=== PATIENT | male | born 1985 | race African-American/Black ===

== ENCOUNTER 2018-06-24 10:26 | Inpatient (IN) | payer SELFPAY ==
[2018-06-24 11:11] VITALS: BMI 24.6
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
[2018-06-24] MEDS ORDERED: IBUPROFEN 400 MG TABLET (FP) PO PRN (11:59)
[2018-06-24] MEDS ORDERED: ACETAMINOPHEN 325 MG TABLET (FP) PO PRN (11:59)
[2018-06-24] MEDS ORDERED: guaiFENesin/D-METHORPHAN HB 10 ML UNIT-DOSE CUPS PO PRN (11:59)
[2018-06-24] MEDS ORDERED: MAG HYDROX/AL HYDROX/SIMETH 30 ML UNIT-DOSE CUP PO PRN (11:59)
[2018-06-24] MEDS ORDERED: MAGNESIUM CITRATE 300 ML BOTTLE PO PRN (11:59)
[2018-06-24] MEDS ORDERED: MAGNESIUM HYDROX 2400MG/30ML ORAL SUSPENSION 30 ML CUP PO PRN (11:59)
[2018-06-24] MEDS ORDERED: NICOTINE POLACRILEX 2 MG GUM BUC PRN (11:59)
[2018-06-24] MEDS ORDERED: MENTHOL/PHENOL 1 EACH UD MM PRN (11:59)
[2018-06-24] MEDS ORDERED: chlordiazePOXIDE HCL 25 MG CAPSULE PO PRN (11:59)
[2018-06-24] MEDS ORDERED: P-EPHED 60MG/TRIPROLIDI 2.5MG TABLET PO PRN (11:59)
[2018-06-24] MEDS ORDERED: METOPROLOL TARTRATE 25 MG TABLET (FP) PO ONE (13:00)
--- NOTE | 2018-06-24 14:32 | EKG ---
Test Reason : Blood Pressure : / mmHG Vent. Rate : 107 BPM Atrial Rate : 107 BPM P-R Int : 118 ms QRS Dur : 086 ms QT Int : 334 ms P-R-T Axes : 068 051 057 degrees QTc Int : 445 ms SINUS TACHYCARDIA POSSIBLE LEFT ATRIAL ENLARGEMENT SEPTAL INFARCT , AGE UNDETERMINED ABNORMAL ECG NO PREVIOUS ECGS AVAILABLE Confirmed by Chinedu Saleh MD ([id number]) on 06/24/2018 2:32:12 PM Referred By: Confirmed By:Chinedu Saleh MD
[2018-06-24] MEDS: chlordiazePOXIDE HCL 25 MG CAPSULE PO SCH ×2 (17:21→22:17)
[2018-06-24] MEDS ORDERED: MELATONIN 5 MG TABLETS PO PRN (22:00)
[2018-06-24] MEDS: THIAMINE HCL 100 MG TABLET (FP) PO SCH (22:17)
[2018-06-25] MEDS: chlordiazePOXIDE HCL 25 MG CAPSULE PO SCH ×4 (06:01→22:09)
[2018-06-25 09:57] LABS: HEMOGLOBIN 14.7 GM/dL (11.7-16.9); MEAN CELL VOLUME 99.1 fl (80-96); WHITE BLOOD COUNT 8.2 K/mm3 (4.0-10.0)
[2018-06-25 10:00] LABS: HEMATOCRIT 44.5 % (35.4-49); MCH 32.7 pg (25.7-33.7); PLATELET COUNT 234 K/MM3 (134-434); RBC 4.49 M/mm3 (4.00-5.60); RDW 12.9 % (11.9-15.9)
[2018-06-25 10:41] LABS: ALBUMIN 3.6 g/dl (3.4-5.0); ALK PHOS 100 U/L (45-117); ANION GAP 10 MMOL/L (8-16); BILIRUBIN,TOTAL 1.4 mg/dL (0.2-1); BLOOD UREA NITROGEN 3 mg/dL (7-18); CALCIUM 9.3 mg/dL (8.5-10.1); CHLORIDE 108 mmol/L (98-107); CO2 23 mmol/L (21-32); CREATININE 0.7 mg/dL (0.55-1.3); GLUCOSE,RANDOM 98 mg/dL (74-106); POTASSIUM 4.2 mmol/L (3.5-5.1); SGOT/AST 38 U/L (15-37); SGPT/ALT 30 U/L (13-61); SODIUM 141 mmol/L (136-145); TOT PROT 7.6 g/dl (6.4-8.2)
[2018-06-25] MEDS: PRENATAL VITAMINS W/ FOLIC ACID TABLET (FP) PO SCH (10:46)
--- NOTE | 2018-06-25 11:10 | PN ---
S CIWA - CIWA Score Nausea/Vomitin Muscle Tremors: 2 Anxiety: 2 Agitation: 4-Moderately Restless Paroxysmal Sweats: No Perspiration Orientation: 0-Oriented Tacttile Disturbances: 0-None Auditory Disturbances: 0-None Visual Disturbances: 0-None Headache: 2-Mild CIWA-Ar Total Score: 13 BHS Progress Note (SOAP) Subjective: PATIENT C/O SHAKES, ANXIETY, RESTLESSNESS, DIARRHEA, INSOMNIA AND MILD HEADACHE. Objective: 06/25/18 11:07 Vital Signs Temperature 96 F L 06/25/18 09:19 Pulse Rate 93 H 06/25/18 10:30 Respiratory Rate 16 06/25/18 10:30 Blood Pressure 141/92 06/25/18 09:19 O2 Sat by Pulse Oximetry (%) Laboratory Tests 06/24/18 06/25/18 06/25/18 12:20 05:45 05:45 WBC 8.2 RBC 4.49 Hgb 14.7 Hct 44.5 MCV 99.1 H MCH 32.7 MCHC 33.0 RDW 12.9 Plt Count 234 MPV 8.0 Sodium 141 Potassium 4.2 Chloride 108 H Carbon Dioxide 23 Anion Gap 10 BUN 3 L Creatinine 0.7 Creat Clearance w eGFR > 60 Random Glucose 98 Calcium 9.3 Total Bilirubin 1.4 H AST 38 H ALT 30 Alkaline Phosphatase 100 Total Protein 7.6 Albumin 3.6 HIV 1&2 Antibody Screen Negative HIV P24 Antigen Negative PE: ALERT AND ORIENTED X 3 SKIN WARM AND DRY EXT FULL ROM, MILD TREMORS NEURO +PERRLA, EOMS INTACT BL +ANXIETY, PACING IN HALLWAY Assessment: 06/25/18 11:09 WITHDRAWAL SX Plan: CONTINUE DETOX ENCOURAGE ORAL FLUIDS CONTINUE TO MONITOR CLINICALLY
[2018-06-25] MEDS: traZODone HCL 50 MG TABLET (FP) PO SCH (22:09)
[2018-06-25] MEDS: THIAMINE HCL 100 MG TABLET (FP) PO SCH (22:09)
[2018-06-26] MEDS: chlordiazePOXIDE HCL 25 MG CAPSULE PO SCH ×2 (05:59→10:34)
[2018-06-26] MEDS: PRENATAL VITAMINS W/ FOLIC ACID TABLET (FP) PO SCH (10:32)
--- NOTE | 2018-06-26 12:50 | PN ---
S CIWA - CIWA Score Nausea/Vomitin-No Nausea/No Vomiting Muscle Tremors: 3 Anxiety: 1-Mildly Anxious Agitation: 2 Paroxysmal Sweats: 1-Minimal Palms Moist Orientation: 1-Uncertain about Date Tacttile Disturbances: 0-None Auditory Disturbances: 0-None Visual Disturbances: 0-None Headache: 2-Mild CIWA-Ar Total Score: 10 S Progress Note (SOAP) Subjective: patient had abnormal ekg upon admission repeat ekg shows arrhythmia otherwise normal begin aspirin patient is asymptomatic denies chest pain denies shortness of breath denies dizziness health teaching on negative consequences of alcohol misuse tremor sweating anxiety restlessness Objective: 06/26/18 13:04 Vital Signs Temperature 97.0 F L 06/26/18 09:33 Pulse Rate 85 06/26/18 09:33 Respiratory Rate 18 06/26/18 09:33 Blood Pressure 129/87 06/26/18 09:33 O2 Sat by Pulse Oximetry (%) Laboratory Last Values WBC 8.2 K/mm3 (4.0-10.0) 06/25/18 05:45 RBC 4.49 M/mm3 (4.00-5.60) 06/25/18 05:45 Hgb 14.7 GM/dL (11.7-16.9) 06/25/18 05:45 Hct 44.5 % (35.4-49) 06/25/18 05:45 MCV 99.1 fl (80-96) H 06/25/18 05:45 MCH 32.7 pg (25.7-33.7) 06/25/18 05:45 MCHC 33.0 g/dl (32.0-35.9) 06/25/18 05:45 RDW 12.9 % (11.9-15.9) 06/25/18 05:45 Plt Count 234 K/MM3 (134-434) 06/25/18 05:45 MPV 8.0 fl (7.5-11.1) 06/25/18 05:45 Sodium 141 mmol/L (136-145) 06/25/18 05:45 Potassium 4.2 mmol/L (3.5-5.1) 06/25/18 05:45 Chloride 108 mmol/L (98-107) H 06/25/18 05:45 Carbon Dioxide 23 mmol/L (21-32) 06/25/18 05:45 Anion Gap 10 MMOL/L (8-16) 06/25/18 05:45 BUN 3 mg/dL (7-18) L 06/25/18 05:45 Creatinine 0.7 mg/dL (0.55-1.3) 06/25/18 05:45 Creat Clearance w eGFR > 60 (>60) 06/25/18 05:45 Random Glucose 98 mg/dL (74-106) 06/25/18 05:45 Calcium 9.3 mg/dL (8.5-10.1) 06/25/18 05:45 Total Bilirubin 1.4 mg/dL (0.2-1) H 06/25/18 05:45 AST 38 U/L (15-37) H 06/25/18 05:45 ALT 30 U/L (13-61) 06/25/18 05:45 Alkaline Phosphatase 100 U/L (45-117) 06/25/18 05:45 Total Protein 7.6 g/dl (6.4-8.2) 06/25/18 05:45 Albumin 3.6 g/dl (3.4-5.0) 06/25/18 05:45 RPR Titer Nonreactive (NONREACTIVE) 06/25/18 05:45 HIV 1&2 Antibody Screen Negative 06/24/18 12:20 HIV P24 Antigen Negative 06/24/18 12:20 lab noted Assessment: 06/26/18 13:05 withdrawal sx Plan: continue detox
[2018-06-26] MEDS: ASPIRIN 81 MG CHEWABLE TABLETS PO SCH (15:33)
[2018-06-26] MEDS: chlordiazePOXIDE 5 MG CAPSULE PO SCH ×2 (16:38→22:03)
[2018-06-26] MEDS: THIAMINE HCL 100 MG TABLET (FP) PO SCH (22:03)
[2018-06-26] MEDS: traZODone HCL 50 MG TABLET (FP) PO SCH (22:03)
[2018-06-27] MEDS: chlordiazePOXIDE 5 MG CAPSULE PO SCH ×2 (05:53→10:35)
[2018-06-27] MEDS: ASPIRIN 81 MG CHEWABLE TABLETS PO SCH (10:35)
[2018-06-27] MEDS: PRENATAL VITAMINS W/ FOLIC ACID TABLET (FP) PO SCH (10:35)
--- NOTE | 2018-06-27 11:40 | EKG ---
Test Reason : Blood Pressure : / mmHG Vent. Rate : 065 BPM Atrial Rate : 065 BPM P-R Int : 128 ms QRS Dur : 090 ms QT Int : 376 ms P-R-T Axes : 073 051 057 degrees QTc Int : 391 ms NORMAL SINUS RHYTHM WITH SINUS ARRHYTHMIA NORMAL ECG WHEN COMPARED WITH ECG OF 24-JUN-2018 13:58, VENT. RATE HAS DECREASED BY 42 BPM CRITERIA FOR SEPTAL INFARCT ARE NO LONGER PRESENT NON-SPECIFIC CHANGE IN ST SEGMENT IN ANTERIOR LEADS QT HAS SHORTENED Confirmed by REMINGTON ALVAREZ, JADA ([id number]) on 06/27/2018 11:39:55 AM Referred By: Confirmed By:JADA MACEDO MD
--- NOTE | 2018-06-27 16:23 | PN ---
S Progress Note (SOAP) Subjective: Patient Denies any Current Withdrawal Symptoms at This Time. Objective: PATIENT A & O X 2 (UNCERTAIN ABOUT CURRENT DAY / DATE). PATIENT OBSERVED AMBULATING ON UNIT. IN NO ACUTE DISTRESS. 06/27/18 16:21 Vital Signs Temperature 97.8 F 06/27/18 13:13 Pulse Rate 101 H 06/27/18 13:13 Respiratory Rate 20 06/27/18 13:13 Blood Pressure 144/90 06/27/18 13:13 O2 Sat by Pulse Oximetry (%) Laboratory Tests 06/24/18 06/25/18 06/25/18 12:20 05:45 05:45 WBC 8.2 RBC 4.49 Hgb 14.7 Hct 44.5 MCV 99.1 H MCH 32.7 MCHC 33.0 RDW 12.9 Plt Count 234 MPV 8.0 Sodium 141 Potassium 4.2 Chloride 108 H Carbon Dioxide 23 Anion Gap 10 BUN 3 L Creatinine 0.7 Creat Clearance w eGFR > 60 Random Glucose 98 Calcium 9.3 Total Bilirubin 1.4 H AST 38 H ALT 30 Alkaline Phosphatase 100 Total Protein 7.6 Albumin 3.6 RPR Titer HIV 1&2 Antibody Screen Negative HIV P24 Antigen Negative 06/25/18 05:45 WBC RBC Hgb Hct MCV MCH MCHC RDW Plt Count MPV Sodium Potassium Chloride Carbon Dioxide Anion Gap BUN Creatinine Creat Clearance w eGFR Random Glucose Calcium Total Bilirubin AST ALT Alkaline Phosphatase Total Protein Albumin RPR Titer Nonreactive HIV 1&2 Antibody Screen HIV P24 Antigen LABS NOTED. Assessment: 06/27/18 16:22 WITHDRAWAL SYMPTOMS. Plan: CONTINUE DETOX. PATIENT SCHEDULED FOR D/C TOMORROW.
[2018-06-27] MEDS: chlordiazePOXIDE HCL 10 MG CAPSULE PO SCH ×2 (17:17→22:18)
[2018-06-27] MEDS: THIAMINE HCL 100 MG TABLET (FP) PO SCH (22:18)
[2018-06-27] MEDS: traZODone HCL 50 MG TABLET (FP) PO SCH (22:18)
[2018-06-28] MEDS: chlordiazePOXIDE HCL 10 MG CAPSULE PO SCH (05:38)
[2018-06-28 06:30] VITALS: BP 122/79; PULSE 82; TEMP 97.2
--- NOTE | 2018-06-28 21:30 | DS ---
[facility] Detox Discharge Summary Admission Date: 06/24/18 Discharge Date: 06/28/18 - History Present History: Alcohol Dependence Additional Comments: PATIENT TO DEAL WITH PERSONAL ISSUE AT THIS TIME. AFTER RESOLVED, PATIENT WILL APPLY FOR REHAB ADMISSION. PATIENT WAS DISCHARGED FROM DETOX UNIT IN STABLE MEDICAL CONDITION. Pertinent Past History: Nicotine Dependence, Insomnia. - Physical Exam Results Vital Signs: Vital Signs Temperature 97.2 F L 06/28/18 06:29 Pulse Rate 82 06/28/18 06:29 Respiratory Rate 18 06/28/18 06:29 Blood Pressure 122/79 06/28/18 06:29 O2 Sat by Pulse Oximetry (%) Pertinent Admission Physical Exam Findings: WITHDRAWAL SYMPTOMS. Laboratory Tests 06/24/18 06/25/18 06/25/18 12:20 05:45 05:45 WBC 8.2 RBC 4.49 Hgb 14.7 Hct 44.5 MCV 99.1 H MCH 32.7 MCHC 33.0 RDW 12.9 Plt Count 234 MPV 8.0 Sodium 141 Potassium 4.2 Chloride 108 H Carbon Dioxide 23 Anion Gap 10 BUN 3 L Creatinine 0.7 Creat Clearance w eGFR > 60 Random Glucose 98 Calcium 9.3 Total Bilirubin 1.4 H AST 38 H ALT 30 Alkaline Phosphatase 100 Total Protein 7.6 Albumin 3.6 RPR Titer HIV 1&2 Antibody Screen Negative HIV P24 Antigen Negative 06/25/18 05:45 WBC RBC Hgb Hct MCV MCH MCHC RDW Plt Count MPV Sodium Potassium Chloride Carbon Dioxide Anion Gap BUN Creatinine Creat Clearance w eGFR Random Glucose Calcium Total Bilirubin AST ALT Alkaline Phosphatase Total Protein Albumin RPR Titer Nonreactive HIV 1&2 Antibody Screen HIV P24 Antigen LABS NOTED. - Treatment Hospital Course: Detox Protocol Followed, Detoxed Safely, Responded well, Discharged Condition Good Patient has Accepted a Rehab Referral to: PATIENT WILL APPLY FOR REHAB ADMISION AT A LATER DATE. - Medication Discharge Medications: Ambulatory Orders NK [No Known Home Medication] 06/24/18 - Diagnosis (1) Alcohol dependence with uncomplicated withdrawal Status: Acute (2) Alcohol intoxication Status: Acute Qualifiers: Complication of substance-induced condition: uncomplicated Qualified Code(s ): F10.920 - Alcohol use, unspecified with intoxication, uncomplicated (3) Insomnia disorder Status: Acute Qualifiers: Insomnia type: drug-induced Qualified Code(s): F19.982 - Other psychoactive substance use, unspecified with psychoactive substance-induced sleep disorder (4) Nicotine dependence Status: Chronic Qualifiers: Nicotine product type: cigarettes Substance use status: uncomplicated Qualified Code(s): F17.210 - Nicotine dependence, cigarettes, uncomplicated - AMA Did Patient Leave Against Medical Advice: No
== END 2018-06-28 09:10 | disposition home or self-care (01) | DRG 775 ==
LOC: YASAS 10:26 → Y3N 12:46
PROC: HZ2ZZZZ Detoxification Services for Substance Abuse Treatment (ICD-10-PCS; principal; 2018-06-24)
DX: F10.230 Alcohol dependence with withdrawal, uncomplicated (principal); F17.210 Nicotine dependence, cigarettes, uncomplicated; F19.282 Other psychoactive substance dependence with psychoactive substance-induced sleep disorder; R20.2 Paresthesia of skin; S60.512A Abrasion of left hand, initial encounter; S60.511A Abrasion of right hand, initial encounter; W19.XXXA Unspecified fall, initial encounter; Z91.81 History of falling; Y93.89 Activity, other specified; Y92.89 Other specified places as the place of occurrence of the external cause; Y99.8 Other external cause status
CPT/HCPCS: 36415; 80053; 85027; 86593; 87389; 93005; 93010

== ENCOUNTER 2018-08-31 08:03 | Inpatient (IN) | payer OTHER ==
[2018-08-31 08:41] VITALS: BMI 22.3
--- NOTE | 2018-08-31 08:51 | HP ---
CIWA Score Nausea/Vomitin Muscle Tremors: 2 Anxiety: 2 Agitation: 2 Paroxysmal Sweats: 1-Minimal Palms Moist Orientation: 0-Oriented Tacttile Disturbances: 1-Very Mild Itch/Numbness Auditory Disturbances: 1-Very Mild Visual Disturbances: 0-None Headache: 2-Mild CIWA-Ar Total Score: 13 - Admission Criteria OASAS Guidelines: Admission for Medically Managed Detox: Requires at least one of the followin. CIWA greater than 12 2. Seizures within the past 24 hours 3. Delirium tremens within the past 24 hours 4. Hallucinations within the past 24 hours 5. Acute intervention needed for co occurring medical disorder 6. Acute intervention needed for co occurring psychiatric disorder 7. Severe withdrawal that cannot be handled at a lower level of care (continued vomiting, continued diarrhea, abnormal vital signs) requiring intravenous medication and/or fluids 8. Admission ROS S - HPI Chief Complaint: i need help to stop drinking alcohol Allergies/Adverse Reactions: Allergies Allergy/AdvReac Type Severity Reaction Status Date / Time No Known Allergies Allergy Verified 08/31/18 08:54 History of Present Illness: this 33 years old male with alcohol dependence seeking help to stop drinking alcohol, had previous admission in detox,last admission [facility] 06/24/18 to 06/28/18 syncope alcohol related nicotine dependence 1 pack/day no significant period of sobriety need help to stop drinking alcohol - Ebola screening Have you traveled outside of the country in the last 21 days: No (N) Have you had contact with anyone from an Ebola affected area: No Have you been sick,other than usual withdrawal symptoms: No Do you have a fever: No - Review of Systems Constitutional: Loss of Appetite, Malaise, Night Sweats, Changes in sleep, Weakness EENT: reports: Nose Congestion Respiratory: reports: No Symptoms reported Cardiac: reports: No Symptoms Reported GI: reports: Nausea, Poor Appetite, Abdominal cramping : reports: No Symptoms Reported Musculoskeletal: reports: Back Pain, Muscle Pain Integumentary: reports: Dryness Neuro: reports: Tremors Endocrine: reports: No Symptoms Reported Hematology: reports: No Symptoms Reported Psychiatric: reports: No Sypmtoms Reported, Judgement Intact, Mood/Affect Appropiate, Orientated x3 Other Systems: Reviewed and Negative Patient History - Patient Medical History Hx Anemia: No Hx Asthma: No Hx Chronic Obstructive Pulmonary Disease (COPD): No Hx Cancer: No Hx Cardiac Disorders: No Hx Congestive Heart Failure: No Hx Hypertension: No Hx Hypercholesterolemia: No Hx Pacemaker: No HX Cerebrovascular Accident: No Hx Seizures: No Hx Dementia: No Hx Diabetes: No Hx Gastrointestinal Disorders: No Hx Liver Disease: No Hx Genitourinary Disorders: No Hx Sexually Transmitted Disorders: No Hx Renal Disease (ESRD): No Hx Thyroid Disease: No Hx Human Immunodeficiency Virus (HIV): No (last 07/05 negative) Hx Hepatitis C: No Hx Depression: No Hx Suicide Attempt: No Hx Bipolar Disorder: No Hx Schizophrenia: No Other Medical History: no suicidal,no homicidal - Patient Surgical History Past Surgical History: No Hx Neurologic Surgery: No Hx Cataract Extraction: No Hx Cardiac Surgery: No Hx Lung Surgery: No Hx Breast Surgery: No Hx Breast Biopsy: No Hx Abdominal Surgery: No Hx Appendectomy: No Hx Cholecystectomy: No Hx Genitourinary Surgery: No Hx Section: No Hx Orthopedic Surgery: No Anesthesia Reaction: No - PPD History Previous Implant?: Yes Documented Results: Negative w/proof Implanted On Prior [facility] Admission?: Yes Date: 06/26/18 Results: 0 mm PPD to be Administered?: No - Smoking Cessation Smoking history: Current every day smoker Have you smoked in the past 12 months: Yes Aproximately how many cigarettes per day: 20 Hx Chewing Tobacco Use: No Initiated information on smoking cessation: Yes 'Breaking Loose' booklet given: 08/31/18 - Substance & Tx. History Hx Alcohol Use: Yes Hx Substance Use: No Substance Use Type: Alcohol Hx Substance Use Treatment: Yes ([facility] 06/26/18 to 06/30/18) - Substances Abused Alcohol Route: Oral Frequency: Daily Amount used: 1 pint of vodka/6 packs of 12 ozs of beer Age of first use: 17 Date of Last Use: 08/31/18 Family Disease History - Family Disease History Family Disease History: Other: Mother (knee surgery ) Admission Physical Exam BHS - Vital Signs Vital Signs: Vital Signs - 24 hr 08/31/18 08:39 Temperature 98.3 F Pulse Rate 86 Respiratory 18 Rate Blood Pressure 131/83 - Physical General Appearance: Yes: Mild Distress, Intoxicated, Tremorous, Irritable, Anxious HEENTM: Yes: ANIRUDH, Pharynx Normal Respiratory: Yes: Lungs Clear, Normal Breath Sounds, No Respiratory Distress Neck: Yes: Within Normal Limits, Supple, Trachea in good position Breast: Yes: Within Normal Limits Cardiology: Yes: Within Normal Limits, Regular Rhythm, Regular Rate, S1, S2 Abdominal: Yes: Within Normal Limits, Normal Bowel Sounds, Non Tender, Flat, Soft Genitourinary: Yes: Within Normal Limits Back: Yes: Muscle Spasm Musculoskeletal: Yes: Back pain, Muscle Pain Extremities: Yes: Tremors 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, Fully Oriented, Alert, Motor Strength 5/5 Integumentary: Yes: Dry Lymphatic: Yes: Within Normal Limits - Diagnostic (1) Alcohol dependence with uncomplicated withdrawal Current Visit: No Status: Acute (2) Alcohol intoxication Current Visit: No Status: Acute Qualifiers: Complication of substance-induced condition: uncomplicated Qualified Code(s ): F10.920 - Alcohol use, unspecified with intoxication, uncomplicated (3) Nicotine dependence Current Visit: No Status: Chronic Qualifiers: Nicotine product type: cigarettes Substance use status: uncomplicated Qualified Code(s): F17.210 - Nicotine dependence, cigarettes, uncomplicated (4) Syncope Current Visit: Yes Status: Acute Cleared for Admission [facility] - Detox or Rehab [facility] Level of Care: Medically Managed Detox Regimen/Protocol: Librium [facility] Breath Alcohol Content Breath Alcohol Content: 0.330 Urine Drug Screen - Results Drug Screen Negative: Yes Inpatient Rehab Admission - Rehab Decision to Admit Inpatient rehab admission?: No
[2018-08-31] MEDS ORDERED: hydrOXYzine PAMOATE 25 MG CAPSULE (FP) PO PRN (08:57)
[2018-08-31] MEDS ORDERED: MAGNESIUM CITRATE 300 ML BOTTLE PO PRN (08:57)
[2018-08-31] MEDS ORDERED: MENTHOL/PHENOL 1 EACH UD MM PRN (08:57)
[2018-08-31] MEDS ORDERED: MAGNESIUM HYDROX 2400MG/30ML ORAL SUSPENSION 30 ML CUP PO PRN (08:57)
[2018-08-31] MEDS ORDERED: IBUPROFEN 400 MG TABLET (FP) PO PRN (08:57)
[2018-08-31] MEDS ORDERED: ACETAMINOPHEN 325 MG TABLET (FP) PO PRN ×2 (08:57)
[2018-08-31] MEDS ORDERED: MAG HYDROX/AL HYDROX/SIMETH 30 ML UNIT-DOSE CUP PO PRN (08:57)
[2018-08-31] MEDS ORDERED: MELATONIN 5 MG TABLETS PO PRN (08:57)
[2018-08-31] MEDS ORDERED: BISMUTH SUBSALICYLATE 524 MG/30 ML UD PO PRN (08:57)
[2018-08-31] MEDS ORDERED: chlordiazePOXIDE HCL 25 MG CAPSULE PO PRN (08:57)
[2018-08-31] MEDS ORDERED: METHOCARBAMOL 500 MG TABLET PO PRN (08:57)
[2018-08-31] MEDS ORDERED: NICOTINE 21 MG/24 HOURS TOPICAL PATCH TD SCH (10:00)
[2018-08-31] MEDS ORDERED: PRENATAL VITAMINS W/ FOLIC ACID TABLET (FP) PO SCH (10:00)
[2018-08-31] MEDS ORDERED: chlordiazePOXIDE HCL 25 MG CAPSULE PO SCH (17:00)
[2018-08-31 17:11] VITALS: BP 143/93; TEMP 99
[2018-08-31 18:31] VITALS: PULSE 98
--- NOTE | 2018-08-31 18:31 | PN ---
[facility] Progress Note Note: called by nurse state patient would like to leave alert,oriented x 3 jamal is 0.182 all attempts to convince patient to stay with no avail seen by counselor patient stated that his mother is sick,he is the only child,he need to be there for his mother Vital Signs Temperature 99 F 08/31/18 17:10 Pulse Rate 108 H 08/31/18 17:30 Respiratory Rate 18 08/31/18 17:30 Blood Pressure 143/93 08/31/18 17:10 O2 Sat by Pulse Oximetry (%) high risk of relapsing explain to patient advise to go to nearest emergency room if any problem patient signed release against medical advice left the unit in stable condition,on steady gait
--- NOTE | 2018-08-31 18:35 | DS ---
[facility] Detox Discharge Summary Admission Date: 08/31/18 Discharge Date: 08/31/18 - History Present History: Alcohol Dependence Additional Comments: patient signed release against medical advice Pertinent Past History: syncope insomnia - Physical Exam Results Vital Signs: Vital Signs Temperature 99 F 08/31/18 17:10 Pulse Rate 98 H 08/31/18 18:30 Respiratory Rate 18 08/31/18 18:30 Blood Pressure 143/93 08/31/18 17:10 O2 Sat by Pulse Oximetry (%) Pertinent Admission Physical Exam Findings: withdrawal signs and symptom Vital Signs Temperature 99 F 08/31/18 17:10 Pulse Rate 98 H 08/31/18 18:30 Respiratory Rate 18 08/31/18 18:30 Blood Pressure 143/93 08/31/18 17:10 O2 Sat by Pulse Oximetry (%) - Medication Discharge Medications: Ambulatory Orders NK [No Known Home Medication] 06/24/18 - Diagnosis (1) Alcohol dependence with uncomplicated withdrawal Current Visit: No Status: Acute (2) Alcohol intoxication Current Visit: No Status: Acute Qualifiers: Complication of substance-induced condition: uncomplicated Qualified Code(s ): F10.920 - Alcohol use, unspecified with intoxication, uncomplicated (3) Nicotine dependence Current Visit: No Status: Chronic Qualifiers: Nicotine product type: cigarettes Substance use status: uncomplicated Qualified Code(s): F17.210 - Nicotine dependence, cigarettes, uncomplicated (4) Syncope Current Visit: Yes Status: Acute - AMA Did Patient Leave Against Medical Advice: Yes
[2018-08-31] MEDS ORDERED: THIAMINE HCL 100 MG TABLET (FP) PO SCH (22:00)
[2018-09-01] MEDS ORDERED: chlordiazePOXIDE HCL 25 MG CAPSULE PO SCH (17:00)
[2018-09-02] MEDS ORDERED: chlordiazePOXIDE HCL 10 MG CAPSULE PO PRN (17:00)
[2018-09-02] MEDS ORDERED: chlordiazePOXIDE HCL 10 MG CAPSULE PO SCH (17:00)
[2018-09-03] MEDS ORDERED: chlordiazePOXIDE HCL 10 MG CAPSULE PO SCH (17:00)
== END 2018-08-31 18:34 | disposition left against medical advice (07) | DRG 770 ==
LOC: YASAS 08:03 → Y3N 08:55
PROVIDERS: ADMIT Surgery; ATTEND Surgery
PROC: HZ2ZZZZ Detoxification Services for Substance Abuse Treatment (ICD-10-PCS; principal; 2018-08-31)
DX: F10.230 Alcohol dependence with withdrawal, uncomplicated (principal); F10.220 Alcohol dependence with intoxication, uncomplicated; F17.210 Nicotine dependence, cigarettes, uncomplicated

== ENCOUNTER 2018-11-04 16:43 | Inpatient (IN) | payer OTHER ==
[2018-11-04 19:24] VITALS: BMI 24.3
--- NOTE | 2018-11-04 23:17 | HP ---
CIWA Score Nausea/Vomitin (vomiting x 3) Muscle Tremors: 4-Moderate,w/Arms Extend Anxiety: 4-Mod. Anxious/Guarded Agitation: 4-Moderately Restless Paroxysmal Sweats: 2 Orientation: 0-Oriented Tacttile Disturbances: 0-None Auditory Disturbances: 0-None Visual Disturbances: 0-None Headache: 0-None Present CIWA-Ar Total Score: 17 - Admission Criteria OASAS Guidelines: Admission for Medically Managed Detox: Requires at least one of the followin. CIWA greater than 12 2. Seizures within the past 24 hours 3. Delirium tremens within the past 24 hours 4. Hallucinations within the past 24 hours 5. Acute intervention needed for co occurring medical disorder 6. Acute intervention needed for co occurring psychiatric disorder 7. Severe withdrawal that cannot be handled at a lower level of care (continued vomiting, continued diarrhea, abnormal vital signs) requiring intravenous medication and/or fluids 8. Admission ROS [facility] Chief Complaint: Alcohol withdrawal symptoms Allergies/Adverse Reactions: Allergies Allergy/AdvReac Type Severity Reaction Status Date / Time No Known Allergies Allergy Verified 11/04/18 19:20 History of Present Illness: 33 years old male with 16 years history of alcohol dependence is seeking admission to detox. Patient was admitted to detox in August but left because he states that his mother was sick. Reports insignificant period of sobriety. Patient denies past medical history and suicidal ideation at this time. Exam Limitations: No Limitations - Ebola screening Have you traveled outside of the country in the last 21 days: No (N) Have you had contact with anyone from an Ebola affected area: No Do you have a fever: No - Review of Systems Constitutional: Chills, Loss of Appetite, Malaise, Night Sweats EENT: reports: Sinus Pressure Respiratory: reports: No Symptoms reported Cardiac: reports: No Symptoms Reported GI: reports: Diarrhea (x 4), Poor Appetite, Poor Fluid Intake, Vomiting (x 3), Abdominal cramping : reports: No Symptoms Reported Musculoskeletal: reports: No Symptoms Reported Integumentary: reports: Dryness, Flushing Neuro: reports: Tremors Endocrine: reports: No Symptoms Reported Hematology: reports: No Symptoms Reported Psychiatric: reports: Anxious Other Systems: Reviewed and Negative Patient History - Patient Medical History Hx Anemia: No Hx Asthma: No Hx Chronic Obstructive Pulmonary Disease (COPD): No Hx Cancer: No Hx Cardiac Disorders: No Hx Congestive Heart Failure: No Hx Hypertension: No Hx Hypercholesterolemia: No Hx Pacemaker: No HX Cerebrovascular Accident: No Hx Seizures: No Hx Dementia: No Hx Diabetes: No Hx Gastrointestinal Disorders: No Hx Liver Disease: No Hx Genitourinary Disorders: No Hx Sexually Transmitted Disorders: No Hx Renal Disease (ESRD): No Hx Thyroid Disease: No Hx Human Immunodeficiency Virus (HIV): No (last 07/05 negative) Hx Hepatitis C: No Hx Depression: No Hx Suicide Attempt: No (Denies suicidal ideation) Hx Bipolar Disorder: No Hx Schizophrenia: No - Patient Surgical History Past Surgical History: No Hx Neurologic Surgery: No Hx Cataract Extraction: No Hx Cardiac Surgery: No Hx Lung Surgery: No Hx Abdominal Surgery: No Hx Appendectomy: No Hx Cholecystectomy: No Hx Genitourinary Surgery: No Hx Orthopedic Surgery: No Anesthesia Reaction: No - PPD History Previous Implant?: Yes Documented Results: Negative w/proof Implanted On Prior [facility] Admission?: Yes Date: 06/26/18 Results: 0 mm PPD to be Administered?: No - Reproductive History Patient is a Female of Child Bearing Age (11 -55 yrs old): No (Tana) - Smoking Cessation Smoking history: Current every day smoker Have you smoked in the past 12 months: Yes Aproximately how many cigarettes per day: 20 Hx Chewing Tobacco Use: No Initiated information on smoking cessation: Yes 'Breaking Loose' booklet given: 11/04/18 - Substance & Tx. History Hx Alcohol Use: Yes Hx Substance Use: No Substance Use Type: Alcohol Hx Substance Use Treatment: Yes ([facility]) - Substances abused Alcohol Substance route: Oral Frequency: Daily Amount used: 1 PINT VODKA Age of first use: 17 Date of last use: 11/04/18 Family Disease History - Family Disease History Family Disease History: Other: Mother (knee surgery ) Admission Physical Exam BHS - Vital Signs Vital Signs: Vital Signs - 24 hr 11/04/18 11/04/18 19:21 21:25 Temperature 99.2 F 99.2 F Pulse Rate 117 H 117 H Respiratory 18 18 Rate Blood Pressure 117/74 117/74 - Physical General Appearance: Yes: Moderate Distress, Tremorous, Irritable, Anxious HEENTM: Yes: Within Normal Limits Respiratory: Yes: Lungs Clear, Normal Breath Sounds, No Respiratory Distress Neck: Yes: Supple Breast: Yes: Breast Exam Deferred Cardiology: Yes: Regular Rhythm, Regular Rate Abdominal: Yes: Normal Bowel Sounds Genitourinary: Yes: Within Normal Limits Back: Yes: Normal Inspection Musculoskeletal: Yes: Muscle Pain Extremities: Yes: Tremors 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, Alert, Normal Mood/Affect Integumentary: Yes: Warm Lymphatic: Yes: Within Normal Limits - Diagnostic (1) Alcohol dependence with uncomplicated withdrawal Current Visit: Yes Status: Chronic (2) Nicotine dependence Current Visit: Yes Status: Chronic Qualifiers: Nicotine product type: cigarettes Substance use status: uncomplicated Qualified Code(s): F17.210 - Nicotine dependence, cigarettes, uncomplicated Cleared for Admission S - Detox or Rehab [facility] Level of Care: Medically Managed Detox Regimen/Protocol: Librium Breathalyzer - Breathalyzer Breathalyzer: 0.243 Urine Drug Screen - Test Device Lot number: [id number] Expiration date: 07/16/20 - Control Is test valid?: Yes - Results Drug screen NEGATIVE: Yes Inpatient Rehab Admission - Rehab Decision to Admit Inpatient rehab admission?: No
[2018-11-04] MEDS ORDERED: MELATONIN 5 MG TABLETS PO PRN (23:25)
[2018-11-04] MEDS ORDERED: METHOCARBAMOL 500 MG TABLET PO PRN (23:25)
[2018-11-04] MEDS ORDERED: hydrOXYzine PAMOATE 25 MG CAPSULE (FP) PO PRN (23:25)
[2018-11-04] MEDS ORDERED: MAG HYDROX/AL HYDROX/SIMETH 30 ML UNIT-DOSE CUP PO PRN (23:25)
[2018-11-04] MEDS ORDERED: ACETAMINOPHEN 325 MG TABLET (FP) PO PRN ×2 (23:25)
[2018-11-04] MEDS ORDERED: MENTHOL/PHENOL 1 EACH UD MM PRN (23:25)
[2018-11-04] MEDS ORDERED: chlordiazePOXIDE HCL 25 MG CAPSULE PO PRN (23:25)
[2018-11-04] MEDS ORDERED: IBUPROFEN 400 MG TABLET (FP) PO PRN (23:25)
[2018-11-04] MEDS ORDERED: MAGNESIUM CITRATE 300 ML BOTTLE PO PRN (23:25)
[2018-11-04] MEDS ORDERED: BISMUTH SUBSALICYLATE 524 MG/30 ML UD PO PRN (23:25)
[2018-11-04] MEDS ORDERED: MAGNESIUM HYDROX 2400MG/30ML ORAL SUSPENSION 30 ML CUP PO PRN (23:25)
[2018-11-04] MEDS ORDERED: NICOTINE POLACRILEX 2 MG GUM BUC PRN (23:25)
[2018-11-05] MEDS: chlordiazePOXIDE HCL 25 MG CAPSULE PO SCH ×5 (01:02→22:11)
[2018-11-05] MEDS: NICOTINE 14 MG/24 HOURS TOPICAL PATCH TD SCH (10:10)
[2018-11-05] MEDS: PRENATAL VITAMINS W/ FOLIC ACID TABLET (FP) PO SCH (10:10)
--- NOTE | 2018-11-05 10:11 | PN ---
S CIWA - CIWA Score Nausea/Vomitin-Mild Nausea/No Vomiting Muscle Tremors: 3 Anxiety: 3 Agitation: 3 Paroxysmal Sweats: 1-Minimal Palms Moist Orientation: 0-Oriented Tacttile Disturbances: 0-None Auditory Disturbances: 0-None Visual Disturbances: 0-None Headache: 1-Very Mild CIWA-Ar Total Score: 12 BHS Progress Note (SOAP) Subjective: feeling ok today from librium detox regimen resting on bed low energy Objective: 11/05/18 10:10 Vital Signs Temperature 96.4 F L 11/05/18 09:13 Pulse Rate 98 H 11/05/18 09:13 Respiratory Rate 16 11/05/18 09:13 Blood Pressure 143/89 11/05/18 09:13 O2 Sat by Pulse Oximetry (%) 11/05/18 10:10 lab pending Assessment: 11/05/18 10:10 withdrawal sx Plan: continue detox
[2018-11-05 10:27] LABS: HEMATOCRIT 40.5 % (35.4-49); HEMOGLOBIN 13.7 GM/dL (11.7-16.9); MCH 33.9 pg (25.7-33.7); MCHC 33.8 g/dl (32.0-35.9); MEAN CELL VOLUME 100.4 fl (80-96); MEAN PLT VOLUME 6.6 fl (7.5-11.1); PLATELET COUNT 248 K/MM3 (134-434); RBC 4.04 M/mm3 (4.00-5.60); RDW 14.2 % (11.9-15.9); WHITE BLOOD COUNT 4.9 K/mm3 (4.0-10.0)
[2018-11-05 10:38] LABS: ALBUMIN 3.7 g/dl (3.4-5.0); CALCIUM 9.3 mg/dL (8.5-10.1); CREATININE 0.7 mg/dL (0.55-1.3)
[2018-11-05] MEDS: THIAMINE HCL 100 MG TABLET (FP) PO SCH (22:11)
[2018-11-06] MEDS: chlordiazePOXIDE HCL 25 MG CAPSULE PO SCH ×3 (05:36→17:36)
[2018-11-06] MEDS: PRENATAL VITAMINS W/ FOLIC ACID TABLET (FP) PO SCH (10:04)
[2018-11-06] MEDS: NICOTINE 14 MG/24 HOURS TOPICAL PATCH TD SCH (10:05)
--- NOTE | 2018-11-06 14:36 | PN ---
[facility] CIWA - CIWA Score Nausea/Vomitin-Mild Nausea/No Vomiting Muscle Tremors: 3 Anxiety: 1-Mildly Anxious Agitation: 2 Paroxysmal Sweats: 1-Minimal Palms Moist Orientation: 0-Oriented Tacttile Disturbances: 0-None Auditory Disturbances: 0-None Visual Disturbances: 0-None Headache: 0-None Present CIWA-Ar Total Score: 8 S Progress Note (SOAP) Subjective: tremor otherwise doing ok resting on bed tolerate food and fluid well Objective: 11/06/18 14:35 Vital Signs Temperature 98 F 11/06/18 13:17 Pulse Rate 72 11/06/18 13:17 Respiratory Rate 18 11/06/18 13:17 Blood Pressure 133/92 11/06/18 13:17 O2 Sat by Pulse Oximetry (%) Laboratory Last Values WBC 4.9 K/mm3 (4.0-10.0) 11/05/18 07:00 RBC 4.04 M/mm3 (4.00-5.60) 11/05/18 07:00 Hgb 13.7 GM/dL (11.7-16.9) 11/05/18 07:00 Hct 40.5 % (35.4-49) 11/05/18 07:00 MCV 100.4 fl (80-96) H 11/05/18 07:00 MCH 33.9 pg (25.7-33.7) H 11/05/18 07:00 MCHC 33.8 g/dl (32.0-35.9) 11/05/18 07:00 RDW 14.2 % (11.9-15.9) D 11/05/18 07:00 Plt Count 248 K/MM3 (134-434) 11/05/18 07:00 MPV 6.6 fl (7.5-11.1) L D 11/05/18 07:00 Sodium 137 mmol/L (136-145) 11/05/18 07:00 Potassium 4.0 mmol/L (3.5-5.1) 11/05/18 07:00 Chloride 103 mmol/L (98-107) 11/05/18 07:00 Carbon Dioxide 30 mmol/L (21-32) 11/05/18 07:00 Anion Gap 4 MMOL/L (8-16) L 11/05/18 07:00 BUN 9 mg/dL (7-18) 11/05/18 07:00 Creatinine 0.7 mg/dL (0.55-1.3) 11/05/18 07:00 Est GFR (CKD-EPI)AfAm 145.74 11/05/18 07:00 Est GFR (CKD-EPI)NonAf 125.75 11/05/18 07:00 Random Glucose 80 mg/dL (74-106) 11/05/18 07:00 Calcium 9.3 mg/dL (8.5-10.1) 11/05/18 07:00 Total Bilirubin 1.0 mg/dL (0.2-1) 11/05/18 07:00 AST 46 U/L (15-37) H 11/05/18 07:00 ALT 40 U/L (13-61) 11/05/18 07:00 Alkaline Phosphatase 65 U/L (45-117) 11/05/18 07:00 Total Protein 7.0 g/dl (6.4-8.2) 11/05/18 07:00 Albumin 3.7 g/dl (3.4-5.0) 11/05/18 07:00 RPR Titer Nonreactive (NONREACTIVE) 11/05/18 07:00 lab noted Assessment: 11/06/18 14:35 withdrawal sx Plan: continue detox
[2018-11-06] MEDS: THIAMINE HCL 100 MG TABLET (FP) PO SCH (22:15)
[2018-11-06] MEDS: chlordiazePOXIDE HCL 10 MG CAPSULE PO SCH (22:15)
[2018-11-06] MEDS ORDERED: chlordiazePOXIDE HCL 10 MG CAPSULE PO PRN (23:00)
[2018-11-07] MEDS: chlordiazePOXIDE HCL 10 MG CAPSULE PO SCH ×3 (05:09→17:00)
[2018-11-07] MEDS: PRENATAL VITAMINS W/ FOLIC ACID TABLET (FP) PO SCH (10:11)
[2018-11-07] MEDS: NICOTINE 14 MG/24 HOURS TOPICAL PATCH TD SCH (10:12)
--- NOTE | 2018-11-07 18:04 | PN ---
S CIWA - CIWA Score Nausea/Vomitin-No Nausea/No Vomiting Muscle Tremors: None Anxiety: 0-No Anxiety, at Ease Agitation: 1-Slight > Activity Paroxysmal Sweats: No Perspiration Orientation: 0-Oriented Tacttile Disturbances: 0-None Auditory Disturbances: 0-None Visual Disturbances: 0-None Headache: 0-None Present CIWA-Ar Total Score: 1 BHS Progress Note (SOAP) Subjective: Patient denies current Withdrawal / Detox symptoms and reports that he feels well overall at this time. Objective: PATIENT A & O X 3, OBSERVED AMBULATING ON UNIT UNASSISTED. IN NO ACUTE DISTRESS. 11/07/18 18:04 Vital Signs Temperature 97.5 F L 11/07/18 17:13 Pulse Rate 95 H 11/07/18 17:13 Respiratory Rate 18 11/07/18 17:13 Blood Pressure 128/85 11/07/18 17:13 O2 Sat by Pulse Oximetry (%) Laboratory Tests 11/05/18 11/05/18 11/05/18 07:00 07:00 07:00 WBC 4.9 RBC 4.04 Hgb 13.7 Hct 40.5 MCV 100.4 H MCH 33.9 H MCHC 33.8 RDW 14.2 D Plt Count 248 MPV 6.6 L D Sodium 137 Potassium 4.0 Chloride 103 Carbon Dioxide 30 Anion Gap 4 L BUN 9 Creatinine 0.7 Est GFR (CKD-EPI)AfAm 145.74 Est GFR (CKD-EPI)NonAf 125.75 Random Glucose 80 Calcium 9.3 Total Bilirubin 1.0 AST 46 H ALT 40 Alkaline Phosphatase 65 Total Protein 7.0 Albumin 3.7 RPR Titer Nonreactive LABS NOTED. Assessment: 11/07/18 18:04 WITHDRAWAL SYMPTOMS. Plan: CONTINUE DETOX. PATIENT SCHEDULED FOR D/C TOMORROW AM.
[2018-11-07 21:48] VITALS: BP 125/86; PULSE 86; TEMP 97.4
[2018-11-07] MEDS: THIAMINE HCL 100 MG TABLET (FP) PO SCH (22:25)
[2018-11-07] MEDS ORDERED: chlordiazePOXIDE HCL 10 MG CAPSULE PO SCH (23:00)
== END 2018-11-08 07:04 | disposition home or self-care (01) | DRG 775 ==
LOC: YASAS 16:43 → Y3N 23:27
PROVIDERS: ADMIT Surgery; ATTEND Surgery
PROC: HZ2ZZZZ Detoxification Services for Substance Abuse Treatment (ICD-10-PCS; principal; 2018-11-04)
DX: F10.230 Alcohol dependence with withdrawal, uncomplicated (principal)
CPT/HCPCS: 36415; 80053; 85027; 86593

== ENCOUNTER 2018-12-05 08:30 | Inpatient (IN) | payer OTHER ==
[2018-12-05 10:04] VITALS: BMI 24.3
--- NOTE | 2018-12-05 11:43 | HP ---
CIWA Score Nausea/Vomitin-No Nausea/No Vomiting Muscle Tremors: None Anxiety: 4-Mod. Anxious/Guarded Agitation: 0-Normal Activity Paroxysmal Sweats: No Perspiration Orientation: 2-Disoriented Date<2 days Tacttile Disturbances: 2-Mild Itch/Numbness/Burn Auditory Disturbances: 0-None Visual Disturbances: 0-None Headache: 0-None Present CIWA-Ar Total Score: 8 - Admission Criteria OASAS Guidelines: Admission for Medically Managed Detox: Requires at least one of the followin. CIWA greater than 12 2. Seizures within the past 24 hours 3. Delirium tremens within the past 24 hours 4. Hallucinations within the past 24 hours 5. Acute intervention needed for co occurring medical disorder 6. Acute intervention needed for co occurring psychiatric disorder 7. Severe withdrawal that cannot be handled at a lower level of care (continued vomiting, continued diarrhea, abnormal vital signs) requiring intravenous medication and/or fluids 8. Admission ROS S - HPI Allergies/Adverse Reactions: Allergies Allergy/AdvReac Type Severity Reaction Status Date / Time No Known Allergies Allergy Verified 12/05/18 10:00 History of Present Illness: patient here requesting detox from etoh use , reports latest use 1 days ago , 1 pint of vodka/ day , beer 6-pk /day, first age of use 17 , reports daily use , reports tremors and irritability if not drinking , + blackouts , denies seizures , +falls while intoxicated, most recently 6 months ago denies LOC,or injury to head , denies driving. Longest sobriety was while incarcerated x 5 years, until 2014 , currently on federal probation x 2 years . Lives w/ mother, unemployed . Current OLMAN 0.292 , went to [facility] today claims no meds given, no d/c paperwork available. no children utox + bzo PMHx : migraine GUZMAN , left UE intermittent numbness chronic PSHx : left sided facial laceration Psych : denies meds : denies . tobacco : 1/2 ppd Exam Limitations: Clinical Condition, Intoxication - Ebola screening Have you traveled outside of the country in the last 21 days: No Have you had contact with anyone from an Ebola affected area: No - Review of Systems Constitutional: See HPI, Loss of Appetite EENT: reports: No Symptoms Reported Respiratory: reports: No Symptoms reported Cardiac: reports: No Symptoms Reported GI: reports: No Symptoms Reported : reports: No Symptoms Reported Musculoskeletal: reports: No Symptoms Reported Integumentary: reports: No Symptoms Reported Neuro: reports: See HPI Endocrine: reports: No Symptoms Reported Psychiatric: reports: Orientated x3 Patient History - Patient Medical History Hx Anemia: No Hx Asthma: No Hx Chronic Obstructive Pulmonary Disease (COPD): No Hx Cancer: No Hx Cardiac Disorders: No Hx Congestive Heart Failure: No Hx Hypertension: No Hx Hypercholesterolemia: No Hx Pacemaker: No HX Cerebrovascular Accident: No Hx Seizures: No Hx Dementia: No Hx Diabetes: No Hx Gastrointestinal Disorders: No Hx Liver Disease: No Hx Genitourinary Disorders: No Hx Sexually Transmitted Disorders: No Hx Renal Disease (ESRD): No Hx Thyroid Disease: No Hx Human Immunodeficiency Virus (HIV): No (last 07/05 negative) Hx Hepatitis C: No Hx Depression: No Hx Suicide Attempt: No (Denies suicidal ideation) Hx Bipolar Disorder: No Hx Schizophrenia: No - Patient Surgical History Past Surgical History: No Hx Neurologic Surgery: No Hx Cataract Extraction: No Hx Cardiac Surgery: No Hx Lung Surgery: No Hx Breast Surgery: No Hx Breast Biopsy: No Hx Abdominal Surgery: No Hx Appendectomy: No Hx Cholecystectomy: No Hx Genitourinary Surgery: No Hx Section: No Hx Orthopedic Surgery: No Anesthesia Reaction: No - PPD History Date: 06/26/18 Results: 0 mm - Smoking Cessation Smoking history: Current every day smoker Have you smoked in the past 12 months: Yes Aproximately how many cigarettes per day: 20 Hx Chewing Tobacco Use: No Initiated information on smoking cessation: No - Substances abused Alcohol Substance route: Oral Frequency: Daily Amount used: 1 PINT VODKA Age of first use: 17 Date of last use: 12/05/18 Family Disease History - Family Disease History Family Disease History: Other: Mother (knee surgery ) Admission Physical Exam BHS - Vital Signs Vital Signs: Vital Signs - 24 hr 12/05/18 09:57 Temperature 98.4 F Pulse Rate 78 Respiratory 20 Rate Blood Pressure 115/67 - Physical General Appearance: Yes: Mild Distress, Alcohol on Breath, Intoxicated HEENTM: Yes: EOMI, Normocephalic, Normal Voice Respiratory: Yes: Lungs Clear, Normal Breath Sounds Neck: Yes: No masses,lesions,Nodules, Trachea in good position Cardiology: Yes: Regular Rhythm, Regular Rate, S1, S2 Abdominal: Yes: Non Tender, Soft Extremities: Yes: Normal Range of Motion, Tremors Neurological: Yes: Alert, Motor Strength 5/5, Disoriented Integumentary: Yes: Warm - Diagnostic (1) Alcohol intoxication Current Visit: Yes Status: Acute Qualifiers: Complication of substance-induced condition: uncomplicated Qualified Code(s ): F10.920 - Alcohol use, unspecified with intoxication, uncomplicated (2) Nicotine dependence Current Visit: Yes Status: Chronic Qualifiers: Nicotine product type: cigarettes Substance use status: uncomplicated Qualified Code(s): F17.210 - Nicotine dependence, cigarettes, uncomplicated Breathalyzer - Breathalyzer Breathalyzer: 0.029 Urine Drug Screen - Test Device Lot number: [id number] Expiration date: 08/14/20 - Control Is test valid?: Yes - Results Drug screen NEGATIVE: Yes Urine drug screen results: BZO-Benzodiazepines Inpatient Rehab Admission - Rehab Decision to Admit Inpatient rehab admission?: No
[2018-12-05] MEDS ORDERED: BISMUTH SUBSALICYLATE 262 MG/15 ML BTL PO PRN (11:46)
[2018-12-05] MEDS ORDERED: MAG HYDROX/AL HYDROX/SIMETH 30 ML UNIT-DOSE CUP PO PRN (11:46)
[2018-12-05] MEDS ORDERED: MENTHOL/PHENOL 1 EACH UD MM PRN (11:46)
[2018-12-05] MEDS ORDERED: MAGNESIUM CITRATE 300 ML BOTTLE PO PRN (11:46)
[2018-12-05] MEDS ORDERED: hydrOXYzine PAMOATE 25 MG CAPSULE (FP) PO PRN (11:46)
[2018-12-05] MEDS ORDERED: ACETAMINOPHEN 325 MG TABLET (FP) PO PRN ×2 (11:46)
[2018-12-05] MEDS ORDERED: NICOTINE POLACRILEX 2 MG GUM BUC PRN (11:46)
[2018-12-05] MEDS ORDERED: MAGNESIUM HYDROX 2400MG/30ML ORAL SUSPENSION 30 ML CUP PO PRN (11:46)
[2018-12-05] MEDS ORDERED: IBUPROFEN 400 MG TABLET (FP) PO PRN (11:46)
[2018-12-05] MEDS ORDERED: diazePAM 5 MG TABLET PO PRN (11:47)
[2018-12-05] MEDS: diazePAM 5 MG TABLET PO SCH ×2 (13:37→22:16)
[2018-12-05 15:59] LABS: HEMATOCRIT 44.4 % (35.4-49); MCH 33.8 pg (25.7-33.7); MCHC 33.7 g/dl (32.0-35.9); MEAN CELL VOLUME 100.3 fl (80-96); MEAN PLT VOLUME 6.7 fl (7.5-11.1); PLATELET COUNT 291 K/MM3 (134-434); RBC 4.43 M/mm3 (4.00-5.60); RDW 14.3 % (11.9-15.9); WHITE BLOOD COUNT 4.1 K/mm3 (4.0-10.0)
[2018-12-05 16:14] LABS: ALBUMIN 4.1 g/dl (3.4-5.0); BILIRUBIN,TOTAL 1.4 mg/dL (0.2-1); BLOOD UREA NITROGEN 8.1 mg/dL (7-18); CALCIUM 8.7 mg/dL (8.5-10.1); CREATININE 0.8 mg/dL (0.55-1.3); POTASSIUM 3.6 mmol/L (3.5-5.1); TOT PROT 7.9 g/dl (6.4-8.2)
[2018-12-05] MEDS: THIAMINE HCL 100 MG TABLET (FP) PO SCH (22:15)
[2018-12-06] MEDS: diazePAM 5 MG TABLET PO SCH ×3 (05:51→22:21)
[2018-12-06] MEDS: PRENATAL VITAMINS W/ FOLIC ACID TABLET (FP) PO SCH (09:55)
--- NOTE | 2018-12-06 13:16 | PN ---
S CIWA - CIWA Score Nausea/Vomitin-Mild Nausea/No Vomiting Muscle Tremors: 2 Anxiety: 3 Agitation: 0-Normal Activity Paroxysmal Sweats: 2 Orientation: 0-Oriented Tacttile Disturbances: 0-None Auditory Disturbances: 0-None Visual Disturbances: 0-None Headache: 2-Mild CIWA-Ar Total Score: 10 BHS Progress Note (SOAP) Subjective: PATIENT C/O MILD HEADACHE, SHAKES, SWEATING AT NIGHT AND ANXIETY/IRRITABILITY. Objective: 12/06/18 13:14 Vital Signs Temperature 99.0 F 12/06/18 09:57 Pulse Rate 81 12/06/18 09:57 Respiratory Rate 18 12/06/18 09:57 Blood Pressure 144/90 12/06/18 09:57 O2 Sat by Pulse Oximetry (%) Laboratory Tests 12/05/18 12/05/18 12/05/18 12:35 12:35 12:35 WBC 4.1 RBC 4.43 Hgb 15.0 Hct 44.4 MCV 100.3 H MCH 33.8 H MCHC 33.7 RDW 14.3 Plt Count 291 MPV 6.7 L Sodium 144 Potassium 3.6 Chloride 106 Carbon Dioxide 29 Anion Gap 9 BUN 8.1 Creatinine 0.8 Est GFR (CKD-EPI)AfAm 137.96 Est GFR (CKD-EPI)NonAf 119.03 Random Glucose 82 Calcium 8.7 Total Bilirubin 1.4 H AST 132 H ALT 57 Alkaline Phosphatase 97 Total Protein 7.9 Albumin 4.1 RPR Titer Nonreactive PE: ALERT AND ORIENTED X 3 SKIN WARM AND DRY +PERRLA EOMS INTACT BL EXT FULL ROM, + MILD TREMORS AMB AD JEN MILDLY ANXIOUS Assessment: 12/06/18 13:16 WITHDRAWAL SX Plan: CONTINUE DETOX MONITOR CLINICALLY
[2018-12-06] MEDS: MELATONIN 5 MG TABLETS PO PRN (22:21)
[2018-12-06] MEDS: THIAMINE HCL 100 MG TABLET (FP) PO SCH (22:21)
[2018-12-07] MEDS ORDERED: diazePAM 5 MG TABLET PO ONE (06:00)
[2018-12-07] MEDS: PRENATAL VITAMINS W/ FOLIC ACID TABLET (FP) PO SCH (10:06)
--- NOTE | 2018-12-07 16:27 | PN ---
[facility] CIWA - CIWA Score Nausea/Vomitin-No Nausea/No Vomiting Muscle Tremors: None Anxiety: 2 Agitation: 2 Paroxysmal Sweats: No Perspiration Orientation: 0-Oriented Tacttile Disturbances: 0-None Auditory Disturbances: 0-None Visual Disturbances: 0-None Headache: 0-None Present CIWA-Ar Total Score: 4 S Progress Note (SOAP) Subjective: Feels ok, symptoms controlled by medication Objective: 12/07/18 16:26 Last Vital Signs Temp Pulse Resp BP Pulse Ox 97.5 F L 60 16 138/93 12/07/18 14:20 12/07/18 14:20 12/07/18 14:20 12/07/18 14:20 Laboratory Tests 12/05/18 12/05/18 12/05/18 12:35 12:35 12:35 WBC 4.1 RBC 4.43 Hgb 15.0 Hct 44.4 MCV 100.3 H MCH 33.8 H MCHC 33.7 RDW 14.3 Plt Count 291 MPV 6.7 L Sodium 144 Potassium 3.6 Chloride 106 Carbon Dioxide 29 Anion Gap 9 BUN 8.1 Creatinine 0.8 Est GFR (CKD-EPI)AfAm 137.96 Est GFR (CKD-EPI)NonAf 119.03 Random Glucose 82 Calcium 8.7 Total Bilirubin 1.4 H AST 132 H ALT 57 Alkaline Phosphatase 97 Total Protein 7.9 Albumin 4.1 RPR Titer Nonreactive Labs reviewed Assessment: 12/07/18 16:26 Withdrawal symptoms Plan: Continue detox Encourage PO water hydration
[2018-12-07] MEDS: THIAMINE HCL 100 MG TABLET (FP) PO SCH (22:08)
[2018-12-07] MEDS: MELATONIN 5 MG TABLETS PO PRN (22:08)
[2018-12-08 06:57] VITALS: TEMP 97.5
[2018-12-08] MEDS: PRENATAL VITAMINS W/ FOLIC ACID TABLET (FP) PO SCH (09:10)
[2018-12-08 09:21] VITALS: BP 141/97; PULSE 70
--- NOTE | 2018-12-08 10:22 | DS ---
[facility] Detox Discharge Summary Admission Date: 12/05/18 Discharge Date: 12/08/18 - History Present History: Alcohol Dependence - Physical Exam Results Vital Signs: Vital Signs Temperature 97.5 F L 12/08/18 06:00 Pulse Rate 70 12/08/18 09:20 Respiratory Rate 18 12/08/18 09:20 Blood Pressure 141/97 12/08/18 09:20 O2 Sat by Pulse Oximetry (%) - Treatment Hospital Course: Detox Protocol Followed, Detoxed Safely, Responded well, Discharged Condition Good, Rehab Referral Accepted - Medication Discharge Medications: Ambulatory Orders NK [No Known Home Medication] 06/24/18 - Diagnosis (1) Nicotine dependence Current Visit: Yes Status: Chronic Qualifiers: Nicotine product type: cigarettes Substance use status: uncomplicated Qualified Code(s): F17.210 - Nicotine dependence, cigarettes, uncomplicated (2) Insomnia disorder Current Visit: No Status: Acute Qualifiers: Insomnia type: drug-induced Qualified Code(s): F19.982 - Other psychoactive substance use, unspecified with psychoactive substance-induced sleep disorder (3) Syncope Current Visit: No Status: Acute (4) Alcohol dependence with uncomplicated withdrawal Current Visit: Yes Status: Chronic - AMA Did Patient Leave Against Medical Advice: No (pt declined aftercare; referral provided)
== END 2018-12-08 08:44 | disposition home or self-care (01) | DRG 775 ==
LOC: YASAS 08:30 → Y6N 12:04
PROVIDERS: ADMIT Surgery; ATTEND Surgery
PROC: HZ2ZZZZ Detoxification Services for Substance Abuse Treatment (ICD-10-PCS; principal; 2018-12-05)
DX: F10.230 Alcohol dependence with withdrawal, uncomplicated (principal); F17.210 Nicotine dependence, cigarettes, uncomplicated; F19.282 Other psychoactive substance dependence with psychoactive substance-induced sleep disorder; R55 Syncope and collapse
CPT/HCPCS: 36415; 80053; 85027; 86593

== ENCOUNTER 2018-12-25 00:09 | Emergency (ER) | payer OTHER ==
--- NOTE | 2018-12-25 00:28 | PDOC ---
Medical Decision Making - Medical Decision Making 12/25/18 00:27 Patient seen by the advanced practice provider under my direct supervision. Ancillary testing reviewed as necessary. I agree with plan as outlined by the advanced practice provider. *DC/Admit/Observation/Transfer Diagnosis at time of Disposition: Alcohol abuse - Referrals - Patient Instructions - Post Discharge Activity
[2018-12-25 00:32] VITALS: BP 120/81; PULSE 79; TEMP 98.1; BMI 25.0
--- NOTE | 2018-12-25 01:13 | PDOC ---
History of Present Illness - General Stated Complaint: INTOX Time Seen by Provider: 12/25/18 00:23 History Source: Patient Exam Limitations: No Limitations Past History - Past Medical History Allergies/Adverse Reactions: Allergies Allergy/AdvReac Type Severity Reaction Status Date / Time No Known Allergies Allergy Verified 12/25/18 00:32 Home Medications: Ambulatory Orders NK [No Known Home Medication] 06/24/18 Anemia: No Asthma: No Cancer: No Cardiac Disorders: No CVA: No COPD: No CHF: No Dementia: No Diabetes: No GI Disorders: No Disorders: No HTN: No Hypercholesterolemia: No Kidney Stones: No Liver Disease: No Seizures: No Thyroid Disease: No - Surgical History Abdominal Surgery: No Appendectomy: No Cardiac Surgery: No Cholecystectomy: No Lung Surgery: No Neurologic Surgery: No Orthopedic Surgery: No - Reproductive History Testicular Surgery: No - Suicide/Smoking/Psychosocial Hx Smoking History: Unknown if ever smoked Have you smoked in the past 12 months: Yes Number of Cigarettes Smoked Daily: 20 'Breaking Loose' booklet given: 11/04/18 Hx Alcohol Use: Yes Drug/Substance Use Hx: No Substance Use Type: Alcohol Hx Substance Use Treatment: Yes *Physical Exam - Vital Signs Last Vital Signs Temp Pulse Resp BP Pulse Ox 98.1 F 79 18 120/81 97 12/25/18 00:30 12/25/18 00:30 12/25/18 00:30 12/25/18 00:30 12/25/18 00:30 - Physical Exam General Appearance: Yes: Alcohol on Breath. No: Apparent Distress HEENT: positive: Other (no tongue fasiculations, no hand tremors noted) Respiratory/Chest: positive: Lungs Clear, Normal Breath Sounds. negative: Respiratory Distress Cardiovascular: positive: Regular Rhythm, Regular Rate, S1, S2. negative: Murmur Gastrointestinal/Abdominal: positive: Normal Bowel Sounds, Soft. negative: Tender, Distended, Guarding, Rebound Extremity: positive: Other (no evidence of trauma) Neurologic: positive: Fully Oriented, Alert, Normal Mood/Affect Medical Decision Making - Medical Decision Making 33 y/o M hx of alcohol dependence BIBEMS for intoxication. Patient was going to admit himself to detox clinic at [facility] but since his girlfriend could not get a bed, he left. Patient was found sleeping in park along with girlfriend and bystander called EMS. Last drink was today. Denies drug use. Denies sob, cp, abd pain, n/v, headache. Patient clinically sober, steady gait noted in ED No concern for trauma No evidence of withdrawal Stable for dc 12/25/18 01:11 *DC/Admit/Observation/Transfer Diagnosis at time of Disposition: Alcohol abuse - Discharge Dispostion Disposition: HOME Condition at time of disposition: Stable Decision to Admit order: No - Referrals - Patient Instructions Printed Discharge Instructions: Alcohol Use Disorder - Post Discharge Activity
== END 2018-12-25 01:19 | disposition home or self-care (01) ==
LOC: JER 00:09
DX: F10.120 Alcohol abuse with intoxication, uncomplicated (principal)
CPT/HCPCS: 99281-25

== ENCOUNTER 2019-02-23 13:50 | Emergency (ER) | payer OTHER ==
--- NOTE | 2019-02-23 14:00 | PDOC ---
History of Present Illness - General Stated Complaint: intoxication/ABD PAIN - History of Present Illness Initial Comments: 02/23/19 13:58 34 yo M with h/o Etoh dependence, and nicotine dependence who p/w vomititng. Patient reports onset of multiple bright red hematemesis x 2 days FIRE MARSHAL, resolved after one day. Also reports episode of loose, dark, red stools 3-4 days FIRE MARSHAL. Has denies hematemesis and melanotic stools over past two days. Patient also endorses 2 days of retrosternal chest pain/pressure, unremitting, with no identifiable alleviators. Pain radiates to left lateral rib cage/thorax. Denies h/o GI bleed, endoscopy. Endorses dark "brown," urine x 2 days FIRE MARSHAL. Patient denies GUZMAN, vision change, palpitations, cough, wheezing, orthopena, PND , leg swelling/pain, N/V, F,C, CP, SOB, urinary complaints, hematuria, BPR, abdominal pain, diarrhea, constipation, lightheadedness, weakness, sensory changes. PMHx: as noted above Surgical: Denies abdominal surgery ROS: as noted SHx: Daily Etoh intake, 1 pint vodka per day. Last drink 1 pint vodka today. Daily tobacco/cigarette use. Denies IVDA Allergies: NKDA Past History - Past Medical History Allergies/Adverse Reactions: Allergies Allergy/AdvReac Type Severity Reaction Status Date / Time No Known Allergies Allergy Verified 02/23/19 15:12 Home Medications: Ambulatory Orders NK [No Known Home Medication] 06/24/18 Anemia: No Asthma: No Cancer: No Cardiac Disorders: No CVA: No COPD: No CHF: No Dementia: No Diabetes: No GI Disorders: No Disorders: No HTN: No Hypercholesterolemia: No Kidney Stones: No Liver Disease: No Seizures: No Thyroid Disease: No - Surgical History Abdominal Surgery: No Appendectomy: No Cardiac Surgery: No Cholecystectomy: No Lung Surgery: No Neurologic Surgery: No Orthopedic Surgery: No - Reproductive History Testicular Surgery: No - Suicide/Smoking/Psychosocial Hx Smoking History: Unknown if ever smoked Have you smoked in the past 12 months: Yes Number of Cigarettes Smoked Daily: 20 'Breaking Loose' booklet given: 11/04/18 Hx Alcohol Use: Yes Drug/Substance Use Hx: No Substance Use Type: Alcohol Hx Substance Use Treatment: Yes Review of Systems - Review of Systems Comments:: 02/23/19 13:59 GENERAL/CONSTITUTIONAL: No fever or chills. No weakness. HEAD, EYES, EARS, NOSE AND THROAT: No change in vision. No ear pain or discharge. No sore throat. CARDIOVASCULAR: + chest pain. No shortness of breath RESPIRATORY: No cough, wheezing, or hemoptysis. GASTROINTESTINAL: + nausea, vomiting, diarrhea, abdominal pain. GENITOURINARY: No dysuria, frequency, or change in urination. MUSCULOSKELETAL: No joint or muscle swelling or pain. No neck or back pain. SKIN: No rash NEUROLOGIC: No headache, vertigo, loss of consciousness, or change in strength/ sensation. ENDOCRINE: No increased thirst. No abnormal weight change HEMATOLOGIC/LYMPHATIC: No anemia, easy bleeding, or history of blood clots. ALLERGIC/IMMUNOLOGIC: No hives or skin allergy. *Physical Exam - Physical Exam Comments: 02/23/19 13:59 GENERAL: Slurred speech. Patient agitated, yelling at staff members. Awake, alert, and fully oriented, in no acute distress HEAD: No signs of trauma, normocephalic, atraumatic EYES: PERRLA, EOMI, sclera anicteric, conjunctiva clear ENT: Hearing grossly normal, nares patent, oropharynx clear without exudates. Moist mucosa NECK: Normal ROM, supple, no lymphadenopathy, JVD, or masses LUNGS: No distress, speaks full sentences, clear to auscultation bilaterally HEART: Regular rate and rhythm, normal S1 and S2, no murmurs, rubs or gallops, peripheral pulses normal and equal bilaterally. ABDOMEN: + epigatsric ttp. Soft, nontender, normoactive bowel sounds. No guarding, no rebound. No masses EXTREMITIES : Normal inspection, Normal range of motion, no edema. No clubbing or cyanosis NEUROLOGICAL: Cranial nerves II through XII grossly intact. Normal speech, normal gait, no focal sensorimotor deficits SKIN: Warm, Dry, normal turgor, no rashes or lesions noted ED Treatment Course - LABORATORY CBC & Chemistry Diagram: 02/23/19 14:46 02/23/19 14:46 Medical Decision Making - Medical Decision Making 02/23/19 14:47 34 yo M with h/o Etoh dependence, and nicotine dependence who p/w vomititng. HR 144, BP 133/100, vitals otherwise wnl, AF, A&Ox3. Physical exam notable for inebritation. Patient with slurred speech, yelling obscenities. at staff members. Will evaluate for UGI bleed ( variceal, geeta arechiga, borhaave, PUD), vs LGI bleed. + retrosternal chest pain. Will consider pancreatitis, pericarditis. ACS/KS r/o. Will evaluate for electrolyte abnml, metabolic and toxic derangements, acid-base disturbances. Will provide adequate fludi reuscitation, anlagesic control, reassess. Will continue to monitor for sobriety. Currently without physical symptoms withdrawal. Ed Course: Patient refuses rectal exam/HIRAM, but able to obtain stool sample from rectal thermometer. Rectal temp 98.1 Patient continually agitated, with attempt to strike staff members. Patient seen ambulating hallways and stopping, and lowering himself to one knee and then to his left side twice in controlled fashion. Patient states that he did not "fall." No injury, absent witnessed head injury, convulsions, or LOC. Patient on ground for seconds before getting back up to feet.Patient conversating while on floor, with slurred speech. Patient placed in four point restraints 02/23/19 16:15 Laboratory Tests 02/23/19 02/23/19 02/23/19 14:46 14:46 14:50 WBC 5.2 Hgb 15.3 Hct 44.5 Plt Count 203 D Sodium 148 H Potassium 3.4 L Chloride 110 H BUN 8.0 Creatinine 0.8 Creatine Kinase 183 Troponin I < 0.02 Stool Occult Blood Negative 02/23/19 16:15 Protonix, NS, Banana bag 02/23/19 17:11 UDS: Unremarkable 02/23/19 18:49 Pt. stable, speech, no longer slurred, alert and oriented x 3 Patient reports he is not interested in detox Patient stable for d/c with return precautions. *DC/Admit/Observation/Transfer Diagnosis at time of Disposition: Alcohol dependence with uncomplicated withdrawal, Intoxication - Discharge Dispostion Condition at time of disposition: Stable Decision to Admit order: No - Referrals - Patient Instructions Printed Discharge Instructions: DI for Alcohol Abuse Additional Instructions: Please return to the emergency department with any new or worsening symptoms or concerns. Please follow up with your primary care physician within 72 hours. - Post Discharge Activity
[2019-02-23] MEDS ORDERED: HALOPERIDOL LACTATE 5 MG/ML IM ONE (14:26)
[2019-02-23] MEDS ORDERED: HALOPERIDOL LACTATE 5 MG/ML ONE (14:27)
[2019-02-23] MEDS ORDERED: PANTOPRAZOLE SODIUM 40 MG VIAL IVPUSH ONE (14:33)
[2019-02-23] MEDS ORDERED: SODIUM CHLORIDE 1,000 ML IV STA (14:33)
--- NOTE | 2019-02-23 14:33 | PDOC ---
Attending Attestation - Resident Resident Name: Reji Barlow - ED Attending Attestation I have performed the following: I have examined & evaluated the patient, The case was reviewed & discussed with the resident, I agree w/resident's findings & plan, Exceptions are as noted - HPI HPI: 02/23/19 14:45 34y M hx of etoh abuse presents with complaint of vomiting. GF notes pt was unarsouable prior to presentation so she called EMS. Pt has had vomiting 3-4 days ago that was red 2 days ago. Pt also endorses dark stool as well. upon arrival, pt was belligerent, combative, pt had 2 episodes of 'fall' (eased down to the ground, without any head injury, loc) was able to be assisted into stretcher. pt noted tachycardic 140s-150s. Pt was placed in restraints and considered chemical restraint as pt was combative and posed a danger to staff, however I was able to convnice the pt to a rectal temp and labwork/iv without furthe rincident. will continue to moinitor the pt ddx - alchol withdrawal, sepsis, aka, will ck labs, vbg, will eval for coingestants fluids for fluid resusitation will ob - Physicial Exam PE: 02/23/19 14:29 General: belligerent, head atrauamatic scalp ent: no tongue fasciulations Pulm: cta bl, no wheezes card: tachycardic abd soft nontender ext: no edema, moving all 4 ext spontaneously and symmetrically neuro: ao x 3, atreumous - Medical Decision Making 02/23/19 17:31 pts labs reviewed - essentially unremarkble no signs of AKA, metaoblic derangement, anemia, GIB pts HR has normlized with fluid resusitation pt currently sleeping in bed - will reassess for sobriety, anticipate dc Heart Score/ECG Review - ECG Impressions Comment:: 02/23/19 17:31 Twelve-lead EKG was performed and reviewed by me. There is normal sinus rhythm with a rate of 108 The axis is normal. The intervals are normal. There is normal R wave progression There are no ST or T wave abnormalities. sinus tachycardia
[2019-02-23] MEDS ORDERED: FOLIC ACID INJECTION - 1 MG, THIAMINE HCL 100 MG, MULTIVIT INJECTION ADULT 10 ML in SOD... IVPB ONE (14:40)
[2019-02-23 15:03] VITALS: BMI 25.0
[2019-02-23] MEDS ORDERED: PANTOPRAZOLE SODIUM 40 MG VIAL ONE (15:06)
[2019-02-23 15:10] LABS: BASO % 0.6 % (0-2.0); EOS % 0.5 % (0-4.5); HEMATOCRIT 44.5 % (35.4-49); HEMOGLOBIN 15.3 GM/dL (11.7-16.9); LYMPH % 22.6 % (8-40); MCH 34.6 pg (25.7-33.7); MCHC 34.3 g/dl (32.0-35.9); MEAN PLT VOLUME 7.3 fl (7.5-11.1); MONO % 6.3 % (3.8-10.2); PLATELET COUNT 203 K/MM3 (134-434); RBC 4.41 M/mm3 (4.00-5.60); RDW 13.4 % (11.9-15.9); WHITE BLOOD COUNT 5.2 K/mm3 (4.0-10.0)
[2019-02-23 15:18] LABS: INR 0.89 (0.83-1.09); PROTHROMBIN TIME (PATIENT) 10.5 SEC (9.7-13.0); VENOUS PH 7.4 (7.31-7.41)
[2019-02-23 15:43] LABS: ALBUMIN 4.1 g/dl (3.4-5.0); ALK PHOS 73 U/L (45-117); ANION GAP 14 MMOL/L (8-16); BILIRUBIN,TOTAL 0.7 mg/dL (0.2-1); CALCIUM 9.7 mg/dL (8.5-10.1); CHLORIDE 110 mmol/L (98-107); CO2 24 mmol/L (21-32); CREATININE 0.8 mg/dL (0.55-1.3); GLUCOSE,RANDOM 97 mg/dL (74-106); POTASSIUM 3.4 mmol/L (3.5-5.1); SGOT/AST 28 U/L (15-37); SGPT/ALT 25 U/L (13-61); SODIUM 148 mmol/L (136-145); TOT PROT 7.8 g/dl (6.4-8.2)
[2019-02-23 16:43] LABS: PH,URINE 5.5 (5.0-8.0); URINE APPEARANCE CLOUDY; URINE BILIRUBIN NEGATIVE (NEGATIVE); URINE COLOR YELLOW; URINE GLUCOSE (UA) NEGATIVE (NEGATIVE); URINE KETONE NEGATIVE (NEGATIVE); URINE LEUK ESTERASE NEGATIVE (NEGATIVE); URINE NITRITE NEGATIVE (NEGATIVE); URINE PROTEIN NEGATIVE (NEGATIVE)
[2019-02-23 16:46] VITALS: TEMP 98
[2019-02-23 17:06] LABS: COCAINE, UR NEGATIVE ng/ml (CUTOFF=300); METHADONE, UR NEGATIVE ng/ml (CUTOFF=300); OPIATES, URI NEGATIVE ng/ml (CUTOFF=300); PHENCYCLIDINE,URINE NEGATIVE ng/ml (CUTOFF=25); URINE AMPHETAMINES NEGATIVE ng/ml (CUTOFF=500); URINE BARBITURATES NEGATIVE ng/ml (CUTOFF=200); URINE BENZODIAZEPINES NEGATIVE ng/ml (CUTOFF=200)
[2019-02-23 18:57] VITALS: BP 118/74; PULSE 78
--- NOTE | 2019-02-24 11:13 | EKG ---
Test Reason : Blood Pressure : / mmHG Vent. Rate : 108 BPM Atrial Rate : 108 BPM P-R Int : 124 ms QRS Dur : 082 ms QT Int : 338 ms P-R-T Axes : 073 019 047 degrees QTc Int : 452 ms SINUS TACHYCARDIA OTHERWISE NORMAL ECG Confirmed by Chinedu Saleh MD ([id number]) on 02/24/2019 11:13:33 AM Referred By: Confirmed By:Chinedu Saleh MD
== END 2019-02-23 19:15 | disposition home or self-care (01) ==
LOC: JER 13:50
PROC: 3E033GC Introduction of Other Therapeutic Substance into Peripheral Vein, Percutaneous Approach (ICD-10-PCS; principal; 2019-02-23)
PROC: 3E0337Z Introduction of Electrolytic and Water Balance Substance into Peripheral Vein, Percutaneous Approach (ICD-10-PCS; 2019-02-23)
DX: F10.220 Alcohol dependence with intoxication, uncomplicated (principal); F17.210 Nicotine dependence, cigarettes, uncomplicated
CPT/HCPCS: 36415; 80053; 80307; 81003; 82272; 82550; 82553; 82803; 83690; 84484; 85025; 85610; 86850; 86900; 86901; 93005; 93010; 96361; 96365; 96366; 96375; 99285-25; J7030

== ENCOUNTER 2022-10-07 18:06 | Inpatient (IN) | payer OTHER ==
[2022-10-07] MEDS ORDERED: FAMOTIDINE 20 MG/50 ML IVPB 20 MG/50 ML MG IVPB ONE ×2 (19:24→19:46)
[2022-10-07] MEDS ORDERED: SODIUM CHLORIDE 0.9% 500 ML INFUS.BAG IV ONE ×2 (19:24→20:29)
[2022-10-07] MEDS ORDERED: TRIMETHOBENZAMIDE HCL 200MG/2ML INJ IM ONE ×2 (19:25→19:46)
[2022-10-07] MEDS ORDERED: LORazepam 2 MG/ML SDV VIAL IVPUSH ONE (19:28)
[2022-10-07] MEDS ORDERED: chlordiazePOXIDE HCL 25 MG CAPSULE PO ONE (19:28)
[2022-10-07 19:44] LABS: BASO % 0.2 % (0-2.0); HEMATOCRIT 51.2 % (35.4-49); LYMPH % 6.1 % (8-40); MCHC 35.1 g/dl (32.0-35.9); MEAN PLT VOLUME 7.3 fl (7.5-11.1); MONO % 6.5 % (3.8-10.2); NEUT % 87.2 % (42.8-82.8); PLATELET COUNT 319 10^3/uL (134-434); RBC 5.63 M/mm3 (4.00-5.60); RDW 14.4 % (11.9-15.9); WHITE BLOOD COUNT 18.9 K/mm3 (4.0-10.0)
[2022-10-07] MEDS ORDERED: MAGNESIUM 1GM/D5W - 1 GM/100 ML IVPB IVPB ONE (19:46)
[2022-10-07] MEDS ORDERED: chlordiazePOXIDE HCL 25 MG CAPSULE ONE (19:46)
[2022-10-07 20:03] LABS: CHLORIDE 84 mmol/L (98-107); SODIUM 132 mmol/L (136-145)
[2022-10-07 20:05] LABS: CALCIUM 10.5 mg/dL (8.5-10.1); GLUCOSE,RANDOM 123 mg/dL (74-106)
[2022-10-07 20:06] LABS: ALBUMIN 4.8 g/dl (3.4-5.0); ANION GAP 23 MMOL/L (8-16); CO2 25 mmol/L (21-32); LIPASE 78 U/L (73-393)
[2022-10-07 20:08] LABS: CREATININE 2.8 mg/dL (0.55-1.3); SGOT/AST 71 U/L (15-37); SGPT/ALT 46 U/L (13-61)
[2022-10-07 20:10] LABS: BILIRUBIN,TOTAL 1.7 mg/dL (0.2-1); TOT PROT 9.4 g/dl (6.4-8.2)
[2022-10-07 20:11] LABS: ALK PHOS 101 U/L (45-117)
[2022-10-07] MEDS ORDERED: POTASSIUM CHLORIDE ORAL LIQUID 20 MEQ/15 ML PO ONE (20:30)
[2022-10-07] MEDS ORDERED: POTASSIUM CHLORIDE TABS 20 MEQ TABLET.ER (FP) PO ONE (22:27)
[2022-10-07] MEDS ORDERED: ACETAMINOPHEN 1000 MG/100 ML BAG IVPB ONE (22:42)
[2022-10-07] MEDS ORDERED: diazePAM CARPU-JECT 10 MG/2 ML DISP.SYRIN IVPUSH ONE (22:42)
[2022-10-08] MEDS ORDERED: LORazepam 1 MG TABLET PO PRN ×3 (00:33→15:56)
[2022-10-08] MEDS ORDERED: ACETAMINOPHEN INJECTION 100 ML IVPB ONE (01:06)
[2022-10-08 02:15] VITALS: BMI 27.3
[2022-10-08] MEDS ORDERED: LACTATED RINGERS SOLUTION 1,000 ML/1,000 ML INFUS.BAG IV SCH ×3 (02:45→15:56)
[2022-10-08 03:47] LABS: EPI CELLS 20 /uL (0-25.1); HYALINE CASTS 17 /uL (0-3.1); PH,URINE 5.5 (5.0-8.0); URINE APPEARANCE CLOUDY; URINE BACTERIA 3 /uL (0-1359); URINE BILIRUBIN 2+ (NEGATIVE); URINE COLOR DK YELLOW; URINE GLUCOSE (UA) NEGATIVE (NEGATIVE); URINE KETONE 2+ (NEGATIVE); URINE LEUK ESTERASE NEGATIVE (NEGATIVE); URINE NITRITE NEGATIVE (NEGATIVE); URINE PROTEIN 1+ (NEGATIVE); URINE WBC 30 /uL (0-25.8)
[2022-10-08 03:51] LABS: METHADONE, UR NEGATIVE (NEGATIVE); PHENCYCLIDINE,URINE NEGATIVE (NEGATIVE); URINE AMPHETAMINES NEGATIVE (NEGATIVE); URINE BENZODIAZEPINES NEGATIVE (NEGATIVE)
[2022-10-08 03:52] LABS: COCAINE, UR NEGATIVE (NEGATIVE); OPIATES, URI NEGATIVE (NEGATIVE); URINE BARBITURATES NEGATIVE (NEGATIVE)
[2022-10-08] MEDS: LORazepam 1 MG TABLET PO SCH ×3 (04:55→16:56)
[2022-10-08] MEDS: HEPARIN NA (PORCINE) 5,000 UNITS/ML 1ML VIAL SQ SCH ×2 (06:02→14:02)
[2022-10-08 07:49] LABS: HEMATOCRIT 45.1 % (35.4-49); HEMOGLOBIN 15.7 GM/dL (11.7-16.9); MCH 32.3 pg (25.7-33.7); MCHC 34.8 g/dl (32.0-35.9); MEAN CELL VOLUME 92.8 fl (80-96); MEAN PLT VOLUME 7.1 fl (7.5-11.1); PLATELET COUNT 240 10^3/uL (134-434); RBC 4.87 M/mm3 (4.00-5.60); RDW 14.4 % (11.9-15.9); WHITE BLOOD COUNT 14.3 K/mm3 (4.0-10.0)
[2022-10-08 08:26] LABS: BILIRUBIN,TOTAL 1.7 mg/dL (0.2-1)
[2022-10-08 08:29] LABS: BLOOD UREA NITROGEN 26.4 mg/dL (7-18)
[2022-10-08 08:30] LABS: CREATININE 1.7 mg/dL (0.55-1.3); MAGNESIUM 2.4 mg/dL (1.8-2.4); PHOSPHOROUS 2.4 mg/dL (2.5-4.9)
[2022-10-08] MEDS ORDERED: NAPH,MB-DB/K PH,MBDB POWDER PACKET PO ONE (08:32)
[2022-10-08 08:50] LABS: ALBUMIN 3.5 g/dl (3.4-5.0); CALCIUM 8.4 mg/dL (8.5-10.1); TOT PROT 7.2 g/dl (6.4-8.2)
[2022-10-08 09:31] LABS: URINE RBC 38.8 /uL (0-23.9)
[2022-10-08 09:33] LABS: BILIRUBIN,DIRECT 0.6 mg/dL (0.0-0.2)
[2022-10-08] MEDS ORDERED: POTASSIUM CHLORIDE ORAL LIQUID 20 MEQ/15 ML PO ONE (10:00)
[2022-10-08] MEDS ORDERED: FOLIC ACID 1 MG TABLET (FP) PO SCH (10:00)
[2022-10-08] MEDS ORDERED: THIAMINE HCL 200 MG/2 ML VIAL IVPB SCH (10:00)
[2022-10-08] MEDS ORDERED: POTASSIUM PHOSPHATE 15 MM in DEXTROSE 5%-WATER - 250 ML IVPB ONE (13:00)
[2022-10-08] MEDS ORDERED: SODIUM CHLORIDE 0.45% 1,000 ML with POTASSIUM CHLORIDE 40 MEQ IV SCH (18:00)
[2022-10-08] MEDS ORDERED: POTASSIUM CHLORIDE 40 MEQ in SODIUM CHLORIDE 0.45% 1,000 ML IV SCH (20:14)
[2022-10-09] MEDS: HEPARIN NA (PORCINE) 5,000 UNITS/ML 1ML VIAL SQ SCH ×4 (00:21→21:09)
[2022-10-09] MEDS: LORazepam 1 MG TABLET PO SCH ×5 (00:22→22:46)
[2022-10-09] MEDS ORDERED: LORazepam 1 MG TABLET PO SCH (05:00)
[2022-10-09] MEDS: NIFEdipine E.R. 30 MG TABLET PO SCH (10:32)
[2022-10-09] MEDS: THIAMINE HCL 200 MG/2 ML VIAL IVPB SCH (10:32)
[2022-10-09] MEDS: FOLIC ACID 1 MG TABLET (FP) PO SCH (10:32)
[2022-10-09 10:40] LABS: HEMATOCRIT 41.9 % (35.4-49); HEMOGLOBIN 14.7 GM/dL (11.7-16.9); MCH 32.6 pg (25.7-33.7); MCHC 35.1 g/dl (32.0-35.9); MEAN CELL VOLUME 92.7 fl (80-96); PLATELET COUNT 188 10^3/uL (134-434); RBC 4.52 M/mm3 (4.00-5.60); RDW 14.6 % (11.9-15.9); WHITE BLOOD COUNT 7.2 K/mm3 (4.0-10.0)
[2022-10-09 11:04] LABS: CALCIUM 8.9 mg/dL (8.5-10.1)
[2022-10-09 11:05] LABS: ALBUMIN 3.2 g/dl (3.4-5.0); MAGNESIUM 2.1 mg/dL (1.8-2.4)
[2022-10-09 11:09] LABS: BILIRUBIN,TOTAL 1.3 mg/dL (0.2-1); TOT PROT 6.6 g/dl (6.4-8.2)
[2022-10-09] MEDS ORDERED: NAPH,MB-DB/K PH,MBDB POWDER PACKET PO ONE (18:00)
[2022-10-09] MEDS ORDERED: MAGNESIUM OXIDE 400 MG TABLET (FP) PO ONE (19:33)
[2022-10-10] MEDS ORDERED: LORazepam 0.5 MG TABLET PO PRN
[2022-10-10] MEDS ORDERED: LORazepam 0.5 MG TABLET PO SCH (05:00)
[2022-10-10] MEDS: LORazepam 0.5 MG TABLET PO SCH ×4 (05:56→22:42)
[2022-10-10] MEDS: HEPARIN NA (PORCINE) 5,000 UNITS/ML 1ML VIAL SQ SCH ×3 (05:57→21:39)
[2022-10-10 10:01] LABS: HEMATOCRIT 43.6 % (35.4-49); HEMOGLOBIN 15.3 GM/dL (11.7-16.9); MCH 32.9 pg (25.7-33.7); MEAN CELL VOLUME 93.8 fl (80-96); MEAN PLT VOLUME 7.9 fl (7.5-11.1); PLATELET COUNT 167 10^3/uL (134-434); RBC 4.65 M/mm3 (4.00-5.60); RDW 14.2 % (11.9-15.9); WHITE BLOOD COUNT 5.3 K/mm3 (4.0-10.0)
[2022-10-10 10:35] LABS: ALBUMIN 3.5 g/dl (3.4-5.0); CALCIUM 9.8 mg/dL (8.5-10.1); MAGNESIUM 2.3 mg/dL (1.8-2.4)
[2022-10-10 10:36] LABS: BLOOD UREA NITROGEN 11.8 mg/dL (7-18)
[2022-10-10 10:38] LABS: CREATININE 1.1 mg/dL (0.55-1.3)
[2022-10-10 10:39] LABS: PHOSPHOROUS 2.7 mg/dL (2.5-4.9)
[2022-10-10 10:40] LABS: TOT PROT 7.2 g/dl (6.4-8.2)
[2022-10-10 10:41] LABS: BILIRUBIN,TOTAL 0.9 mg/dL (0.2-1)
[2022-10-10] MEDS ORDERED: POTASSIUM CHLORIDE ORAL LIQUID 20 MEQ/15 ML PO ONE (11:55)
[2022-10-10] MEDS: FOLIC ACID 1 MG TABLET (FP) PO SCH (12:23)
[2022-10-10] MEDS: NIFEdipine E.R. 30 MG TABLET PO SCH (12:23)
[2022-10-10] MEDS: THIAMINE HCL 200 MG/2 ML VIAL IVPB SCH (12:24)
[2022-10-10] MEDS ORDERED: NIFEdipine E.R. 30 MG TABLET PO SCH (15:23)
[2022-10-11] MEDS ORDERED: LORazepam 0.5 MG TABLET PO ONE ×2 (05:00)
[2022-10-11] MEDS: HEPARIN NA (PORCINE) 5,000 UNITS/ML 1ML VIAL SQ SCH (06:18)
[2022-10-11 09:22] LABS: BASO % 0.4 % (0-2.0); EOS % 2.3 % (0-4.5); HEMATOCRIT 44.5 % (35.4-49); HEMOGLOBIN 15.5 GM/dL (11.7-16.9); LYMPH % 26.2 % (8-40); MCH 32.6 pg (25.7-33.7); MCHC 34.9 g/dl (32.0-35.9); MEAN CELL VOLUME 93.4 fl (80-96); MEAN PLT VOLUME 8.1 fl (7.5-11.1); MONO % 12.8 % (3.8-10.2); NEUT % 58.3 % (42.8-82.8); PLATELET COUNT 158 10^3/uL (134-434); RBC 4.77 M/mm3 (4.00-5.60); RDW 13.9 % (11.9-15.9); WHITE BLOOD COUNT 5.8 K/mm3 (4.0-10.0)
[2022-10-11 09:29] LABS: INR 0.97 (0.83-1.09); PROTHROMBIN TIME (PATIENT) 11.2 SEC (9.7-13.0)
[2022-10-11] MEDS: FOLIC ACID 1 MG TABLET (FP) PO SCH (09:43)
[2022-10-11] MEDS: THIAMINE HCL 200 MG/2 ML VIAL IVPB SCH (09:45)
[2022-10-11 09:52] LABS: ALBUMIN 3.7 g/dl (3.4-5.0)
[2022-10-11 09:53] LABS: BLOOD UREA NITROGEN 12.1 mg/dL (7-18); CALCIUM 9.5 mg/dL (8.5-10.1); MAGNESIUM 2.1 mg/dL (1.8-2.4)
[2022-10-11 09:55] LABS: PHOSPHOROUS 3.6 mg/dL (2.5-4.9)
[2022-10-11 09:57] LABS: BILIRUBIN,TOTAL 0.8 mg/dL (0.2-1); TOT PROT 7.5 g/dl (6.4-8.2)
[2022-10-11] MEDS ORDERED: NIFEdipine E.R. 30 MG TABLET PO SCH ×2 (10:00)
[2022-10-11 10:59] VITALS: BP 143/99; PULSE 96; RESP 16; TEMP 97.6
== END 2022-10-11 11:16 | disposition home or self-care (01) | DRG 469 ==
LOC: JER 18:06 → JERBED 23:36 → J4W 10-08 02:42 → J5S 10-08 13:29
PROVIDERS: ADMIT Internal Medicine; ATTEND Internal Medicine
DX: N17.9 Acute kidney failure, unspecified (principal); R65.10 Systemic inflammatory response syndrome (SIRS) of non-infectious origin without acute organ dysfunction; K76.0 Fatty (change of) liver, not elsewhere classified; E87.6 Hypokalemia; E86.0 Dehydration; E83.39 Other disorders of phosphorus metabolism; F10.230 Alcohol dependence with withdrawal, uncomplicated; E83.42 Hypomagnesemia; I10 Essential (primary) hypertension; E86.9 Volume depletion, unspecified; N20.0 Calculus of kidney; F17.210 Nicotine dependence, cigarettes, uncomplicated
CPT/HCPCS: 0241U-QW; 36415; 71045-TC-FY; 74176-TC; 76705-TC; 76775-TC; 80053; 80307; 81003; 82248; 82436; 82550; 82553; 82570; 82607; 82962; 83690; 83735; 83930; 83935; 84100; 84133; 84300; 84439; 84443; 84484; 84540; 85025; 85027; 85610; 87086; 93005; 93010; 97116-GP; 97162-GP; 99285-25; J1644